=== PATIENT | female | born 1980 | race African-American/Black ===

== ENCOUNTER 2018-08-18 03:25 | Emergency (ER) | payer SELFPAY ==
[~2018-08-18] VITALS: Ht 165.1 cm; Wt 65.0 kg
[2018-08-18] MEDS ORDERED: LORAZEPAM 1MG TABLET PO ONE (04:00)
[2018-08-18 05:51] VITALS: BP 120/69
== END 2018-08-18 05:51 | disposition home or self-care (01) ==
LOC: ER 03:25
DX: F41.9 Anxiety disorder, unspecified (principal); R00.2 Palpitations; R07.89 Other chest pain; R45.1 Restlessness and agitation; M25.572 Pain in left ankle and joints of left foot; M25.571 Pain in right ankle and joints of right foot; M25.542 Pain in joints of left hand; M25.541 Pain in joints of right hand; J45.909 Unspecified asthma, uncomplicated; Z88.2 Allergy status to sulfonamides
CPT/HCPCS: 93005; 99284